=== PATIENT | male | born 2000 | race Caucasian/White ===

== ENCOUNTER 2020-08-17 15:59 | Emergency (ER) | payer BC, OTHER ==
[2020-08-17 17:14] LABS: HEMOGLOBIN 15.7 gm/dl (14.0-17.5); RED BLOOD COUNT 4.84 M/UL (4.20-5.50); WHITE BLOOD COUNT 10.6 K/UL (4.5-11.0)
[2020-08-17 17:31] LABS: BUN/CREATININE RATIO 14 (0-10)
[2020-08-17] MEDS ORDERED: ZOFRAN4 MG PO (18:17)
[2020-08-17] MEDS ORDERED: IBUPROFEN600 MG PO (18:17)
== END 2020-08-17 18:40 | disposition home or self-care (01) ==
LOC: ER1 15:59
PROVIDERS: Physician Assistant Medical
DX: S90.111A Contusion of right great toe without damage to nail, initial encounter (principal); R42 Dizziness and giddiness; R11.10 Vomiting, unspecified; Z88.5 Allergy status to narcotic agent; X58.XXXA Exposure to other specified factors, initial encounter
CPT/HCPCS: 73630; 80053; 81001; 85025; 93005; 99284

== ENCOUNTER 2021-02-20 15:48 | Emergency (ER) | payer BC ==
[~2021-02-20 15:48] MED LIST: IBUPROFEN600 MG PO; ZOFRAN4 MG PO
[2021-02-20] MEDS ORDERED: HYDROCORTISON28.4 G4 TP (16:10)
== END 2021-02-20 16:27 | disposition home or self-care (01) ==
LOC: ER1 15:48
DX: L55.1 Sunburn of second degree (principal)
CPT/HCPCS: 99282

== ENCOUNTER → 2021-06-08 | Outpatient (CLI) | payer BC ==
[~2021-06-08] MED LIST changes: +HYDROCORTISON28.4 G4 TP
== END ==
LOC: RAD 11:50
DX: S46.912A Strain of unspecified muscle, fascia and tendon at shoulder and upper arm level, left arm, initial encounter (principal)
CPT/HCPCS: 73030